=== PATIENT | male | born 1995 | race Caucasian/White ===

== ENCOUNTER 2021-11-23 15:32 | Emergency (ER) | payer OTHER ==
[2021-11-23] MEDS: Ketorolac 30 MG/ML SDV IM STA (17:13)
== END 2021-11-23 18:58 | disposition home or self-care (01) ==
LOC: MW.ED 15:32
DX: R07.9 Chest pain, unspecified (principal); Z20.822 Contact with and (suspected) exposure to COVID-19
CPT/HCPCS: 71045; 87635; 96372; 99285; J1885; 93010; 99283; U0002